=== PATIENT | female | born 1955 | race Caucasian/White ===

== ENCOUNTER 2018-11-19 09:50 | Day surgery (SDC) | payer OTHER ==
[~2018-11-19] VITALS: Ht 165.1 cm; Wt 94.8 kg
[~2018-11-19 09:50] MED LIST: ASPIR 8181 MG PO; CALCIUM500 MG PO; CLARITIN10 MG PO; ESCITALOPRAM OX20 MG PO; FISH OIL 1,0001 EAC3 PO; GLUCOSAMINE-MS1 EACH PO; LIPITOR10 MG PO; LISINOPRIL-HCT1 EACH PO; MULTIVITAMINS1 EAC8 PO; VITAMIN D31000 UNI1 PO
[2018-11-19] MEDS ORDERED: CELECOXIB200 MG PO (13:05)
[2018-11-19] MEDS ORDERED: GABAPENTIN300 MG PO (13:06)
[2018-11-19] MEDS ORDERED: SENNA LAX8.6 MG PO (13:06)
[2018-11-19] MEDS ORDERED: HYDROCODON-ACE1 EA11 PO (13:06)
--- NOTE | 2018-11-19 13:15 | NUR ---
11/19/18 1315 Bre Benitez 1309 PT TO PACU AWAKE AND TALKING. PT DENIES PAIN AND NAUSEA.
--- NOTE | 2018-11-19 13:49 | NUR ---
PT ARRIVED FROM PACU, AWAKE BUT SLIGHTLY DROWSY. DENIES PAIN AND NAUSEA. PT IS ABLE TO MOVE DIGITS ON RO FOOT. DRSG C/D/I, ICE IN PLACE. WATER GIVEN. NO FURTHER NEEDS AT THIS TIME. JEET HWANG'S SON CALLED TO UPDATE. CALL LIGHT IN REACH.
--- NOTE | 2018-11-19 14:44 | NUR ---
1420 IN TO CHECK ON PT, PT RESTING LISTENING TO MUSIC. PT DENIES PAIN AND NAUSEA. BOOT IN PLACE TO R ANKLE. PT REQUEST LAY GOODMANETERIA NOTIFIED. WATER GIVEN. IV SL. PT DENIES OTHER NEEDS AT THIS TIME.
--- NOTE | 2018-11-19 15:02 | OR ---
[facility] [address], [place] [address] Signed DATE OF OPERATION: 11/19/2018 SURGEON: Kale Benitez MD PREOPERATIVE DIAGNOSIS: Calcific tendinosis, right Achilles. POSTOPERATIVE DIAGNOSIS: Calcific tendinosis, right Achilles. PROCEDURE PERFORMED: Debridement and Achilles repair, right. MOTH PROOFER: Barbara Thorpe PA-C. Barbara was present and critical for all portions of the procedure. ANESTHESIA: General with popliteal block. TOURNIQUET TIME: 30 minutes. IMPLANTS: 4.75 SwiveLock and LabralTape. BRIEF HISTORY: Payal is a 63-year-old female with chronic tendinosis and significant calcific tendinitis in her right Achilles. She had undergone nonoperative treatment for an extensive amount of time without substantial relief. Risks and benefits of operative treatment were discussed with her and she elected to proceed. Once consent was obtained she was taken to the operating room and placed in a prone position. All downside pressure points well padded. Chest rolls were placed with the breast free. The leg was placed in well-padded proximal thigh tourniquet, prepped and draped in the standard sterile fashion. Leg was exsanguinated using Esmarch bandage. Tourniquet inflated to 200 mmHg. Standard posterior approach through a longitudinal incision was taken through skin and subcutaneous tissue. The tendon was lumpy and swollen in areas. It was split longitudinally and elevated medially and laterally to allow to allow visualization of the calcific tendinosis. This was removed using rongeur and curettes. The image Electronically Signed By: KALE BENITEZ MD 11/19/18 1502 PATIENT NAME: PAYAL AMADOR OPERATIVE REPORT DATE OF : 59 REPORT #: [id number] PHYSICIAN: KALE BENITEZ MD PCP: Mariel Chavira REPORT IS CONFIDENTIAL AND NOT TO BE RELEASED WITHOUT AUTHORIZATION [facility] [address], [place] [address] Signed intensifier was brought in and we got all the significant amount we could see. Once this was completed, the wound was copiously irrigated with antibiotic solution. A LabralTape was then placed in a tendon grasping suture from the proximal extent of the split all the way down to the end. This was then placed over 475 anchor in the calcaneus with excellent fixation. The peritenon was then repaired using 2-0 Monocryl. The subcutaneous tissue with 3-0 Monocryl and the skin with Dermabond mesh. The wound was dressed with Mepilex Ag dressing, gauze, and Best wrap. She was placed back into her fracture boot with wedges. She was taken to the recovery room in satisfactory condition. All sponge, needle, and instrument counts were correct. Kale Benitez MD BA/MASSIMO /[id number] Copies: ~ Electronically Signed By: KALE BENITEZ MD 11/19/18 1502 PATIENT NAME: PAYAL AMADOR OPERATIVE REPORT DATE OF : 59 REPORT #: [id number] PHYSICIAN: KALE BENITEZ MD PCP: Mariel Chavira REPORT IS CONFIDENTIAL AND NOT TO BE RELEASED WITHOUT AUTHORIZATION
--- NOTE | 2018-11-19 15:19 | NUR ---
1450 PT'S SON JEET HER TO SEE PT. IN TO CHECK ON PT, PT DOING WELL. ASSISTED UP TO RESTROOM WITH ASSIST FROM WALKER AND RN. PT TOLERATED TOE TOUCH WEIGHT BEARING. DISCUSSED DC CRITERIA, PT AGREES THAT SHE IS READY TO GO HOME. IV DC'D. PT DRESSED BY SELF. DISCHARGE INSTRUCTIONS GIVEN. PT WHEELED OUT TO WAITING CAR WITH SON.
== END 2018-11-19 15:05 | disposition home or self-care (01) ==
LOC: DS 09:50 → OPS 09:50
PROVIDERS: Specialist
PROC: 0LQN0ZZ Repair Right Lower Leg Tendon, Open Approach (ICD-10-PCS; principal; 2018-11-19 12:30)
DX: M76.61 Achilles tendinitis, right leg (principal); I10 Essential (primary) hypertension; R94.31 Abnormal electrocardiogram [ECG] [EKG]; Z79.82 Long term (current) use of aspirin; Z79.899 Other long term (current) drug therapy; Z88.5 Allergy status to narcotic agent
CPT/HCPCS: 01472; 62322; 73600; 76942; C1713; J0131; J0330; J0690; J1100; J1885; J2250; J2405; J2704; J2795; J3010; J7120

== ENCOUNTER 2021-03-12 05:45 | Day surgery (SDC) | payer OTHER ==
[~2021-03-12] VITALS: Ht 165.1 cm; Wt 90.5 kg
[~2021-03-12 05:45] MED LIST changes: +CELECOXIB200 MG PO; +GABAPENTIN300 MG PO; +HYDROCODON-ACE1 EA11 PO; +SENNA LAX8.6 MG PO
[2021-03-12] MEDS ORDERED: HYDROCODON-ACE1 EA10 PO (07:42)
--- NOTE | 2021-03-12 07:43 | NUR ---
03/12/21 0743 Odette Tyler 0738- PT ARRIVES TO PACU AWAKE ON AND OFF ON HER OWN. PT REPORTS NO PAIN OR NAUSEA. RESP EVEN AND UNLABORED. OXYGEN SAT HIGH 90'S ON 6L VIA MASK. ICE PACK APPLIED TO PT'S LEFT KNEE WITH DRESSING IN BETWEEN SKIN AND ICE PACK.
--- NOTE | 2021-03-12 08:12 | NUR ---
0805: PT ARRIVES TO UNIT FROM PACU VIA STRETCHER. AWAKE AND ORIENTED, ANSWERS QUESTIONS AND CONVERSES APPROPRIATELY. VSS, RESP EVEN AND UNLABORED. DRESSING C/D/I, CMS WNL. JYOTI PO FLUIDS WELL, DENIES PAIN AND NAUSEA AT THIS TIME. CRACKERS PROVIDED. COMFORTABLE WITHOUT NEEDS, CALL LIGHT WITHIN REACH
--- NOTE | 2021-03-12 09:08 | NUR ---
904: PT RESTS COMFORTABLY IN BED WITH EYES CLOSED. WAKES WHEN THIS RN ENTERS THE ROOM. DENIES PAIN AND NAUSEA. JYOTI PO INTAKE WELL. VSS, RESP EVEN AND UNLABORED. DRESSING C/D/I, CMS WNL. DENIES URGE TO VOID, WILL CALL FOR RN. IV CONVERED TO SL. NO NEEDS VOICED, CALL LIGHT WITHIN REACH
--- NOTE | 2021-03-12 09:15 | NUR ---
0915: KANIKA (PT CARLOS) CONTACTED TO [facility] FOR PT D/C
--- NOTE | 2021-03-12 09:31 | NUR ---
0930: PT CALL FOR RN. REPORTS URGE TO USE BR. DANGLES AT THE BEDSIDE, JYOTI WELL. DENIES DIZZINESS AND SOB. AMBULATES TO BR WITH THIS RN STANDBY ASSIST. STEADY GAIT. SUCCESSFUL POST OP VOID OF 450ML. BACK TO ROOM 5 TO DRESS FOR D/C
--- NOTE | 2021-03-12 10:44 | NUR ---
0950: D/C INSTRUCTIONS PROVIDED AND DISCUSSED ORDERED. PT VOICES UNDERSTANDING AND DENIES QUESTIONS AND CONCERNS AT THIS TIME. SL D/C'D WITH CATH TIP INTACT AND PRESSURE APPLIED TO MISA W[place]. 1000: PT WHEELED OFF OF UNIT IN W/C BY THIS RN. TRANSFERS INTO VEHICLE INDEPENDENTLY. NO SIGNS AND SYMPTOMS OF DISTRESS AT THIS TIME. RESP EVEN AND UNLABORED
--- NOTE | 2021-03-15 06:55 | OR ---
[facility] [address], [place] [address] Signed DATE OF OPERATION: 03/12/2021 SURGEON: Kale Benitez MD PREOPERATIVE DIAGNOSIS: Medial meniscus tear of left knee. POSTOPERATIVE DIAGNOSIS: Medial meniscus tear of left knee. PROCEDURE PERFORMED: Left knee arthroscopy with partial medial meniscectomy. HUMAN RESOURCES GENERALIST: None. ANESTHESIA: General. BLOOD LOSS: Minimal. BRIEF HISTORY: Payal is a 65-year-old female with pain and instability in her knee. Risks and benefits of operative treatment were discussed with her and she elected to proceed. DESCRIPTION OF PROCEDURE: Once consent was obtained, she was taken to the operating room. After adequate anesthesia she was placed on operating room table. The right leg was flexed, abducted, and externally rotated on a well-padded leg shankar. The left was placed in well-padded proximal thigh and leg shankar with no tourniquet. The leg was then prepped and draped in a standard sterile fashion. The portal sites were pre-injected using 0.25% Marcaine with epinephrine. The standard inferolateral and superolateral portals were made and the scope was introduced in the knee. ARTHROSCOPIC FINDINGS: The knee had a moderate synovitis throughout. The patella showed grade 2 chondromalacia of the trochlea, grade 1. The medial and lateral gutters were clear. There were osteophytes in the notch and in the medial gutter. ACL and PCL were intact. Lateral compartment was intact with one small area of grade 4 chondromalacia. The medial Electronically Signed By: KALE BENITEZ MD 03/15/21 0655 PATIENT NAME: PAYAL AMADOR OPERATIVE REPORT DATE OF : 59 REPORT #: [id number] PHYSICIAN: KALE BENITEZ MD PCP: Mariel Chavira REPORT IS CONFIDENTIAL AND NOT TO BE RELEASED WITHOUT AUTHORIZATION [facility] [address], [place] [address] Signed compartment showed a complex tear posteriorly and grade 4 chondromalacia over about 30-40% of the femur and 20% of the tibia. Standard inferomedial portal was made after localization using a spinal needle. The straight and curved biters were used to trim the meniscus tear back to a stable rim. The shaver was used to feather the meniscus out and removed all debris. The scope was then withdrawn, portals were closed with 3-0 nylon and the knee injected with 60 mg Toradol. The wounds were dressed with Adaptic, ABD, and Best wrap. She tolerated the procedure well. All sponge, needle, and instrument counts were correct. Kale Benitez MD BA/MASSIMO /[id number] Copies: ~ Electronically Signed By: KALE BENITEZ MD 03/15/21 0655 PATIENT NAME: PAYAL AMADOR OPERATIVE REPORT DATE OF : 59 REPORT #: [id number] PHYSICIAN: KALE BENITEZ MD PCP: Mariel Chavira REPORT IS CONFIDENTIAL AND NOT TO BE RELEASED WITHOUT AUTHORIZATION
== END 2021-03-12 10:00 | disposition home or self-care (01) ==
LOC: DS 05:45
PROVIDERS: ATTEND Specialist
PROC: 0SBD4ZZ Excision of Left Knee Joint, Percutaneous Endoscopic Approach (ICD-10-PCS; principal; 2021-03-12 06:45)
DX: S83.232A Complex tear of medial meniscus, current injury, left knee, initial encounter (principal); W19.XXXA Unspecified fall, initial encounter; M65.9 Synovitis and tenosynovitis, unspecified; M94.262 Chondromalacia, left knee; Z88.5 Allergy status to narcotic agent
CPT/HCPCS: 01400; J0690; J7121